=== PATIENT | female | born 1945 | race American Indian/Alaskan Native ===

== ENCOUNTER 2016-11-24 07:01 | Day surgery (SDC) | payer BC, MEDICARE, OTHER ==
[~2016-11-24 07:01] MED LIST: Dextrose 5%-0.45% NaCl 1,000 ML IV SCH; Midazolam 1 MG/ML 2 ML SDV ONE; Sodium Chloride 0.9% 10 ML Syringe FLUSH PRN; fentaNYL 100 MCG/2 ML SDV ONE
[2016-11-24] MEDS ORDERED: fentaNYL 100 MCG/2 ML SDV IV ONE ×3 (07:29→12:11)
[2016-11-24] MEDS ORDERED: Midazolam 1 MG/ML 2 ML SDV IV ONE ×7 (07:30→12:11)
--- NOTE | 2016-11-24 08:57 | OR ---
DATE: 11/24/2016 PROCEDURE: Total colonoscopy, NBI, and piecemeal snare polypectomy. INSTRUMENT USED: CF-H180AL Olympus video colonoscope. PREMEDICATIONS: Fentanyl 100 mcg intravenous, Versed 4 mg intravenous. Nasal O2 cannula. The procedure was done under pulse oximetry, BP recording, and director of cardiac rehabilitation. INDICATION: The patient with Hemoccult positive stools. Colonoscopic examination is done for detection of any polypoid lesions and removal, endoscopic hemostasis therapy if needed. DESCRIPTION OF PROCEDURE: Initial rectal exam was unremarkable. Rigid anoscopy was normal. The colonoscope was passed with ease. Numerous scattered diverticula were noted in the distal left colon along with deformity. The scope was passed with ease up to the ileocecal area, photographs were taken of the normal-appearing cecum, identified by landmarks of appendiceal orifice and double-bulged ileocecal folds. No bleeding was noted from any of the visualized areas at the commencement of the examination. No stricture. No vascular ectasia. No large isolated ulcerations seen. No evidence of diffuse inflammatory bowel disease in the form of friability, contact bleeding, or ulcerations. In the distal ascending colon, 1 cm sized superficial sessile polyp was noted, NBI views were obtained, photographs were taken, piecemeal snare polypectomy was done, the tissues were retrieved and sent for histopathology. Probing the proximal sides of folds and flexures, using adequate distention and clearing up the stool material, withdrawal of the scope was made. No bleeding was noted from any of the visualized areas at the completion of examination. IMPRESSION: 1. Diverticulosis. 2. Ascending colon polyp. The patient tolerated the procedure well. [facility] /[id number]
[2016-11-24 09:25] VITALS: BP 110/72
--- NOTE | 2016-11-24 10:51 | LETTER ---
11/24/2016 KELVIN Hubbard [facility] [address] [place] [address] RE: MOREKATHY Dominguez SATNAM : 1945 Dear Ms. Agudelo: Ms. Kathy Huizar had colonoscopic examination done this morning and she tolerated the procedure well. I herewith send a copy of the endoscopy note and photographs for your review. Thank you. Sincerely, [facility] /[id number]
== END 2016-11-27 10:19 | disposition home or self-care (01) ==
LOC: DL.ENDO 07:01
PROVIDERS: ATTEND Internal Medicine Gastroenterology
DX: D12.2 Benign neoplasm of ascending colon (principal); K57.30 Diverticulosis of large intestine without perforation or abscess without bleeding; K21.9 Gastro-esophageal reflux disease without esophagitis; E03.9 Hypothyroidism, unspecified; E66.09 Other obesity due to excess calories; Z88.6 Allergy status to analgesic agent; E78.00 Pure hypercholesterolemia, unspecified; E55.9 Vitamin D deficiency, unspecified; Z79.899 Other long term (current) drug therapy
CPT/HCPCS: 45385; J2250; J3010; J7042

== ENCOUNTER 2017-11-19 06:26 | Day surgery (SDC) | payer BC, MEDICARE, OTHER ==
[~2017-11-19 06:26] MED LIST changes: -Midazolam 1 MG/ML 2 ML SDV ONE; -fentaNYL 100 MCG/2 ML SDV ONE
[2017-11-19] MEDS ORDERED: Midazolam 1 MG/ML 2 ML SDV IV ONE ×6 (06:27→07:24)
[2017-11-19] MEDS ORDERED: fentaNYL 100 MCG/2 ML SDV IV ONE ×4 (06:27→07:26)
[2017-11-19] MEDS ORDERED: Dextrose 5%-0.45% NaCl 1,000 ML IV SCH (06:30)
[2017-11-19] MEDS ORDERED: Midazolam 1 MG/ML 2 ML SDV ONE (07:00)
[2017-11-19] MEDS ORDERED: fentaNYL 100 MCG/2 ML SDV ONE (07:01)
--- NOTE | 2017-11-19 08:18 | OR ---
DATE: 11/19/2017 PROCEDURE: Total colonoscopy. INSTRUMENT USED: PCF-H180 AL Olympus video colonoscope. PREMEDICATIONS: Fentanyl 150 mcg intravenous, Versed 4 mg intravenous. O2 administration. INDICATION: The patient with previous removal of sessile ascending colon polyp. Followup colonoscopic examination is done for detection of any residual polyp tissue and removal, endoscopic hemostasis therapy if needed. DESCRIPTION OF PROCEDURE: Initial rectal exam was unremarkable. Rigid anoscopy was normal. The colonoscope was passed with ease. Numerous scattered diverticula were noted in the distal left colon along with deformity. The scope was passed with relative ease up to the ileocecal area. Photographs were taken of the normal- appearing cecum, identified by landmarks of appendiceal orifice and double- bulged ileocecal folds. No bleeding was noted from any of the visualized areas at the commencement of the exam. There was some amount of fecal material that had to be aspirated clear. No stricture. No vascular ectasia. No large isolated ulcerations seen. No evidence of diffuse inflammatory bowel disease in the form of friability, contact bleeding, or ulcerations. No polyp or tumor mass identified. Probing the proximal sides of folds and flexures, using adequate distention and clearing up the stool material, withdrawal of the scope was made. [id number] time over 6 minutes. No bleeding was noted from any of the visualized areas at the completion of examination. IMPRESSION: Diverticulosis. The patient tolerated the procedure well. [facility] /[id number]
--- NOTE | 2017-11-19 08:59 | LETTER ---
11/19/2017 Guerita Agudelo, RODRIGUEZ [facility] [address] [place] [address] RE: KATHY CAM : 1945 Dear Ms. Agudelo: Ms. Kathy Dennis had colonoscopic examination done this morning and she tolerated the procedure well. I herewith send a copy of the endoscopy note and photographs for your review. Thank you. Sincerely, [facility] /[id number]
[2017-11-19 12:00] VITALS: BP 106/60
== END 2017-11-19 09:40 | disposition home or self-care (01) ==
LOC: DL.ENDO 06:26
PROVIDERS: ATTEND Internal Medicine Gastroenterology
DX: Z09 Encounter for follow-up examination after completed treatment for conditions other than malignant neoplasm (principal); K57.30 Diverticulosis of large intestine without perforation or abscess without bleeding; E66.09 Other obesity due to excess calories; K21.9 Gastro-esophageal reflux disease without esophagitis; E03.9 Hypothyroidism, unspecified; Z86.010 Personal history of colon polyps
CPT/HCPCS: 45378; J2250; J3010; J7042

== ENCOUNTER 2020-07-11 17:23 | Emergency (ER) | payer BC, MEDICARE ==
[2020-07-11 17:44] VITALS: BP 141/73; PULSE 87
[2020-07-11] MEDS ORDERED: Dexamethasone 4 MG/ML SDV IM ONE (17:57)
[2020-07-11] MEDS ORDERED: Orphenadrine 60 MG/2 ML Inj IM ONE (17:57)
--- NOTE | 2020-07-11 19:18 | EDM.PDOC ---
Scribed by Heather Maxwell 07/11/201917 for Ruth Holloway NP <Ruth Holloway - Last Filed: 07/11/20 19:18> ED HPI GENERAL MEDICAL PROBLEM - General Chief Complaint: Neck Problem Stated Complaint: PAIN ON LEFT SIDE Time Seen by Provider: 07/11/20 17:35 Source of Information: Reports: Patient, RN, RN Notes Reviewed History Limitations: Reports: No Limitations - History of Present Illness INITIAL COMMENTS - FREE TEXT/NARRATIVE: Patient is a 74-year-old female who presents to ER with complaint of left sided neck pain, with radiation down the left arm. This began slowly on Sunday. ASA has been helping--but progressively getting worse. Rates pain 02/06. States she has brain aneurysms and is being followed for that. States she has been going to [facility] for her neck. Onset: Gradual Duration: Getting Worse Location: Reports: Lower Extremity, Left Quality: Reports: Ache Severity: Moderate Improves with: Reports: None Worsens with: Reports: None Associated Symptoms: Reports: No Other Symptoms Left Arm Pain Score (Numeric/FACES): 10 - Related Data Allergies Allergy/AdvReac Type Severity Reaction Status Date / Time enteric coated aspirin AdvReac Nausea Uncoded 07/11/20 17:38 Home Meds: Home Meds Ibuprofen 200 mg PO ASDIRECTED PRN 01/24/15 [History] Levothyroxine [Synthroid] 75 mcg PO DAILY 01/24/15 [History] Simvastatin [Zocor] 40 mg PO BEDTIME 02/19/15 [History] Acetaminophen 650 mg PO ASDIRECTED PRN 11/08/16 [History] Cholecalciferol (Vitamin D3) [Vitamin D3] 1,000 units PO DAILY 11/08/16 [History] Famotidine 20 mg PO DAILY 11/08/16 [History] Dextromethorphan HBr [Delsym 30 MG/5 ML Susp] 45 mg PO ASDIRECTED PRN 11/19/17 [History] Past Medical History HEENT History: Reports: Cataract, Impaired Vision, Other (See Below) Other HEENT History: WEARS CORRECTIVE LENS. 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 Respiratory History: Reports: None Gastrointestinal History: Reports: Colon Polyp, GERD, Other (See Below) Other Gastrointestinal History: surgery for acid reflux Genitourinary History: Reports: None ONLINE SERVICES MANAGER History: Reports: Musculoskeletal History: Reports: Arthritis, Back Pain, Chronic Neurological History: Reports: Cerebral Aneurysms Psychiatric History: Reports: Anxiety, Depression Endocrine/Metabolic History: Reports: Hypothyroidism, Obesity/BMI 30+, Vitamin D Deficiency Hematologic History: Reports: Anemia Immunologic History: Reports: None Oncologic (Cancer) History: Reports: None Dermatologic History: Reports: None - Infectious Disease History Infectious Disease History: Reports: Chicken Pox, Measles - Past Surgical History Head Surgeries/Procedures: Reports: Other (See Below) HEENT Surgical History: Reports: Eye Surgery, Other (See Below) Other HEENT Surgeries/Procedures: LEFT BLEPHTHROPLASTY Cardiovascular Surgical History: Reports: Aneurysm Respiratory Surgical History: Reports: None GI Surgical History: Reports: Colonoscopy, EGD, Cruz Fundoplication, Polypectomy Female Surgical History: Reports: D&C, Tubal Ligation Endocrine Surgical History: Reports: None Neurological Surgical History: Reports: Other (See Below) Other Neurological Surgeries/Procedures: CEREBRAL COIL 04/2016 Musculoskeletal Surgical History: Reports: None Oncologic Surgical History: Reports: None Dermatological Surgical History: Reports: None Social & Family History - Family History Family Medical History: No Pertinent Family History - Caffeine Use Caffeine Use: Reports: Coffee Other Caffeine Use: AVERAGE OF 2.5 CUPS DAILY OF COFFEE ED ROS GENERAL - Review of Systems Review Of Systems: Comprehensive ROS is negative, except as noted in HPI. ED EXAM, UPPER BACK/NECK PAIN - Physical Exam Exam: See Below Exam Limited By: No Limitations General Appearance: Moderate Distress Eye Exam: Bilateral Eye: EOMI, Normal Inspection, PERRL Ears Exam: Normal External Exam, Normal Canal, Hearing Grossly Normal, Normal TMs Nose Exam: Normal Inspection, Normal Mucousa, No Blood Throat/Mouth Exam: Normal Inspection, Normal Lips, Normal Teeth, Normal Gums, Normal Oropharynx, Normal Voice, No Airway Compromise Head Exam: Atraumatic, Normocephalic Neck Exam: Other (Tender lateral and midline. Decreased range of motion. ) (Female) Exam: Deferred Rectal (Female) Exam: Deferred Back Exam: Decreased Range of Motion Extremities: Normal Inspection, Normal Range of Motion, Non-Tender, No Pedal Edema, Normal Capillary Refill Neurologic: Alert, Oriented x 3 Psychiatric: Anxious Skin Exam: Normal Color, Warm/Dry Lymphatic: No Adenopathy Departure - Departure Disposition: Home, Self-Care 01 Clinical Impression: Cervical radiculopathy - Discharge Information Instructions: Cervical Radiculopathy, [id number] Forms: ED Department Discharge Care Plan Goals: The patient was advised of the examination and x-ray results during the visit. The patient was given a dose of Dexamethasone and a muscle relaxer while in the ED. The patient was discharged with a script for Dexamethasone (2 mg) #10 to take by mouth 2 times per day for 5 days. The patient was encouraged to follow- up with her primary care facility as soon as possible for continued evaluation (MRI) and treatment (physical therapy). If the patient has any additional symptoms or concerns, the patient should either return to the emergency department or visit her primary care facility. <Amador Cameron M - Last Filed: 07/11/20 19:38> Course - Vital Signs Last Recorded V/S: Last Vital Signs Temp 36.4 C 07/11/20 17:43 Pulse 87 07/11/20 17:43 Resp 18 07/11/20 17:43 BP 141/73 H 07/11/20 17:43 Pulse Ox 98 07/11/20 17:43 - Orders/Labs/Meds Meds: Medications Discontinued Medications Generic Name Dose Route Start Last Admin Trade Name Venus PRJignesh Reason Stop Dose Admin Dexamethasone 8 mg 07/11/20 17:57 07/11/20 18:04 Dexamethasone 4 Mg/Ml Sdv IM 07/11/20 17:58 8 mg ONETIME ONE Administration Orphenadrine Citrate 60 mg 07/11/20 17:57 07/11/20 18:04 Orphenadrine 60 Mg/2 Ml Inj IM 07/11/20 17:58 60 mg ONETIME ONE Administration Departure - Departure Time of Disposition: 19:34 Condition: Fair - Discharge Information *PRESCRIPTION DRUG MONITORING PROGRAM REVIEWED*: Not Applicable *COPY OF PRESCRIPTION DRUG MONITORING REPORT IN PATIENT HELEN: Not Applicable Sepsis Event Note (ED) - Focused Exam Vital Signs: Vital Signs Temp Pulse Resp BP Pulse Ox 07/11/20 17:43 36.4 C 87 18 141/73 H 98 I have read and agree with the documentation that has been completed regarding this visit. By signing this record, I attest that the documentation was completed in my physical presence and is an accurate record of the encounter.
--- NOTE | 2020-07-11 19:19 | CR ---
PROCEDURE INFORMATION: Exam: XR Cervical Spine Exam date and time: 07/11/2020 6:23 PM Age: 74 years old Clinical indication: Other: No trauma; Additional info: Neck, left arm pain TECHNIQUE: Imaging protocol: XR of the cervical spine. Views: 4 or 5 views. COMPARISON: No relevant prior studies available. FINDINGS: Bones/joints: Normal alignment in neutral, flexion, and extension. Bilateral foraminal stenosis C5-C6 and unilateral foraminal stenosis at C6-C7. No fracture deformity. Diffuse osteopenia. No lytic or osteo sclerotic lesions. Disc osteophyte formation at C5-C6 and C6-C7. Soft tissues: Unremarkable. IMPRESSION: 1. No acute findings. 2. 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
== END 2020-07-11 19:52 | disposition home or self-care (01) ==
LOC: DL.ED 17:23
DX: M54.12 Radiculopathy, cervical region (principal); E78.00 Pure hypercholesterolemia, unspecified; K21.9 Gastro-esophageal reflux disease without esophagitis; E03.9 Hypothyroidism, unspecified; E66.9 Obesity, unspecified; Z79.899 Other long term (current) drug therapy
CPT/HCPCS: 72050; 96372; 99283; J1100; J2360

== ENCOUNTER 2022-06-28 07:32 | Day surgery (SDC) | payer OTHER, MEDICARE, BC ==
[~2022-06-28 07:32] MED LIST changes: +Acetaminophen 325 MG Tab PO PRN; +Acetaminophen/Codeine 300-30 MG Tab PO PRN; +Apraclonidine 0.5% Ophth Soln 5 ML Bot EYELF ONE; +Balanced Salt Solution Ophth Irrig 500 ML Bottle IOCULAR ONE; +Cataract Ophth Solution EYELF ONE; +Chondroitin Sulfate/Hyaluronate Sodium Ophth Inj 0.75 ML Syringe EYELF ONE; +Dexamethasone/Neomycin/Polymyxin B Ophth Oint 3.5 GM Tube EYELF ONE; -Dextrose 5%-0.45% NaCl 1,000 ML IV SCH; +Diclofenac Sodium 0.1% Ophth Soln 5 ML Bottle EYELF ONE; +Lidocaine 1% 30 ML SDV ONE; +Moxifloxacin 0.5% Ophth Soln 3 ML Bottle EYELF ONE; +Ondansetron 4 MG/2 ML SDV IVPUSH PRN; +Phenylephrine 10% Ophth Soln 5 ML Bot EYELF PRN; +Povidone-Iodine 5% Sterile Ophth Soln 30 ML Bottle EYELF ONE; +Proparacaine 0.5% Ophth Soln 15 ML Bottle EYELF ONE; +Timolol Maleate 0.5% Ophth Soln 5 ML Bottle EYELF ONE; +Tropicamide 1% Ophth Soln 15 ML Bottle EYELF ONE; +Vancomycin 500 MG SDV EYELF ONE
[2022-06-28] MEDS ORDERED: Midazolam 1 MG/ML 2 ML SDV IV ONE (07:33)
[2022-06-28] MEDS ORDERED: Dexamethasone 4 MG/ML SDV IV ONE (07:33)
[2022-06-28] MEDS ORDERED: Sodium Chloride 0.9% 10 ML Syringe IV ONE (07:33)
[2022-06-28 10:04] VITALS: BP 115/71; PULSE 63
== END 2022-06-28 10:25 | disposition home or self-care (01) ==
LOC: DL.SDS 07:32
PROVIDERS: ATTEND Ophthalmology
DX: H25.812 Combined forms of age-related cataract, left eye (principal); E03.9 Hypothyroidism, unspecified; K57.30 Diverticulosis of large intestine without perforation or abscess without bleeding; F41.9 Anxiety disorder, unspecified; I12.9 Hypertensive chronic kidney disease with stage 1 through stage 4 chronic kidney disease, or unspecified chronic kidney disease; N18.30 Chronic kidney disease, stage 3 unspecified; E11.22 Type 2 diabetes mellitus with diabetic chronic kidney disease; E11.40 Type 2 diabetes mellitus with diabetic neuropathy, unspecified; M81.0 Age-related osteoporosis without current pathological fracture; E55.9 Vitamin D deficiency, unspecified; K21.9 Gastro-esophageal reflux disease without esophagitis; E78.5 Hyperlipidemia, unspecified; F43.22 Adjustment disorder with anxiety; Z87.891 Personal history of nicotine dependence; Z79.899 Other long term (current) drug therapy; Z79.890 Hormone replacement therapy; Z79.84 Long term (current) use of oral hypoglycemic drugs; Z88.6 Allergy status to analgesic agent
CPT/HCPCS: 00142; A9270-GY; J1100; J2250; J3370; J3490; V2632

== ENCOUNTER 2022-07-12 07:04 | Day surgery (SDC) | payer BC, MEDICARE, OTHER ==
[~2022-07-12 07:04] MED LIST changes: -Acetaminophen 325 MG Tab PO PRN; -Apraclonidine 0.5% Ophth Soln 5 ML Bot EYELF ONE; -Balanced Salt Solution Ophth Irrig 500 ML Bottle IOCULAR ONE; -Cataract Ophth Solution EYELF ONE; +Cataract Ophth Solution EYERT ONE; -Chondroitin Sulfate/Hyaluronate Sodium Ophth Inj 0.75 ML Syringe EYELF ONE; -Dexamethasone/Neomycin/Polymyxin B Ophth Oint 3.5 GM Tube EYELF ONE; -Diclofenac Sodium 0.1% Ophth Soln 5 ML Bottle EYELF ONE; -Lidocaine 1% 30 ML SDV ONE; -Moxifloxacin 0.5% Ophth Soln 3 ML Bottle EYELF ONE; +Moxifloxacin 0.5% Ophth Soln 3 ML Bottle EYERT ONE; -Phenylephrine 10% Ophth Soln 5 ML Bot EYELF PRN; +Phenylephrine 10% Ophth Soln 5 ML Bot EYERT PRN; -Povidone-Iodine 5% Sterile Ophth Soln 30 ML Bottle EYELF ONE; +Povidone-Iodine 5% Sterile Ophth Soln 30 ML Bottle EYERT ONE; -Proparacaine 0.5% Ophth Soln 15 ML Bottle EYELF ONE; +Proparacaine 0.5% Ophth Soln 15 ML Bottle EYERT ONE; -Timolol Maleate 0.5% Ophth Soln 5 ML Bottle EYELF ONE; +Timolol Maleate 0.5% Ophth Soln 5 ML Bottle EYERT ONE; -Tropicamide 1% Ophth Soln 15 ML Bottle EYELF ONE; +Tropicamide 1% Ophth Soln 15 ML Bottle EYERT ONE; -Vancomycin 500 MG SDV EYELF ONE
[2022-07-12] MEDS ORDERED: Midazolam 1 MG/ML 2 ML SDV IVPUSH ONE (07:05)
[2022-07-12] MEDS ORDERED: Sodium Chloride 0.9% 10 ML Syringe IVPUSH ONE (07:05)
[2022-07-12] MEDS ORDERED: Dexamethasone 4 MG/ML SDV IVPUSH ONE (07:05)
[2022-07-12] MEDS ORDERED: Proparacaine 0.5% Ophth Soln 15 ML Bottle EYERT ONE (08:11)
[2022-07-12] MEDS ORDERED: Povidone-Iodine 5% Sterile Ophth Soln 30 ML Bottle EYERT ONE (08:13)
[2022-07-12] MEDS ORDERED: Chondroitin Sulfate/Hyaluronate Sodium Ophth Inj 0.75 ML Syringe EYERT ONE (08:22)
[2022-07-12] MEDS ORDERED: Dexamethasone 4 MG/ML SDV IOCULAR ONE (08:22)
[2022-07-12] MEDS ORDERED: Balanced Salt Solution Ophth Irrig 500 ML Bottle IOCULAR ONE (08:22)
[2022-07-12] MEDS ORDERED: Vancomycin 500 MG SDV EYERT ONE (08:22)
[2022-07-12] MEDS ORDERED: Lidocaine 1% 30 ML SDV ONE (08:22)
[2022-07-12] MEDS ORDERED: Diclofenac Sodium 0.1% Ophth Soln 5 ML Bottle EYERT ONE (08:25)
[2022-07-12] MEDS ORDERED: Apraclonidine 0.5% Ophth Soln 5 ML Bot EYERT ONE (08:26)
[2022-07-12] MEDS ORDERED: Dexamethasone/Neomycin/Polymyxin B Ophth Oint 3.5 GM Tube EYERT ONE (08:26)
[2022-07-12] MEDS: Acetaminophen 325 MG Tab PO PRN ×2 (09:17→09:20)
[2022-07-12 12:28] VITALS: BP 116/65; PULSE 56
== END 2022-07-12 09:43 | disposition home or self-care (01) ==
LOC: DL.SDS 07:04
PROVIDERS: ATTEND Ophthalmology
DX: H25.811 Combined forms of age-related cataract, right eye (principal); E03.9 Hypothyroidism, unspecified; E78.5 Hyperlipidemia, unspecified; E11.22 Type 2 diabetes mellitus with diabetic chronic kidney disease; I12.9 Hypertensive chronic kidney disease with stage 1 through stage 4 chronic kidney disease, or unspecified chronic kidney disease; N18.30 Chronic kidney disease, stage 3 unspecified; K21.9 Gastro-esophageal reflux disease without esophagitis; M81.0 Age-related osteoporosis without current pathological fracture; Z79.890 Hormone replacement therapy; Z79.899 Other long term (current) drug therapy; Z79.84 Long term (current) use of oral hypoglycemic drugs
CPT/HCPCS: 00142; A9270-GY; J1100; J2250; J3370; J3490; V2632

== ENCOUNTER 2023-11-26 05:21 | Day surgery (SDC) | payer BC, MEDICARE, OTHER ==
[2023-11-26] MEDS ORDERED: fentaNYL 100 MCG/2 ML SDV IV ONE (05:22)
[2023-11-26] MEDS ORDERED: Midazolam 1 MG/ML 2 ML SDV IV ONE (05:22)
[2023-11-26] MEDS: Dextrose 5%-0.45% NaCl 1,000 ML IV SCH (06:06)
[2023-11-26] MEDS ORDERED: Midazolam 1 MG/ML 2 ML SDV ONE (06:17)
[2023-11-26] MEDS ORDERED: fentaNYL 100 MCG/2 ML SDV ONE (06:17)
[2023-11-26] MEDS: fentaNYL 100 MCG/2 ML SDV IV ONE ×2 (06:32→06:33)
[2023-11-26] MEDS: Midazolam 1 MG/ML 2 ML SDV IV ONE ×6 (06:33→06:48)
[2023-11-26 08:07] VITALS: BP 109/76; PULSE 65
== END 2023-11-26 08:20 | disposition home or self-care (01) ==
LOC: DL.ENDO 05:21
PROVIDERS: ATTEND Internal Medicine Gastroenterology
DX: Z12.11 Encounter for screening for malignant neoplasm of colon (principal); K57.30 Diverticulosis of large intestine without perforation or abscess without bleeding; Z85.038 Personal history of other malignant neoplasm of large intestine
CPT/HCPCS: 45378; J2250; J3010; J7799

== ENCOUNTER 2024-11-13 22:12 | Emergency (ER) | payer BC, MEDICARE, OTHER ==
[2024-11-13 22:41] VITALS: BP 109/75; PULSE 56
== END 2024-11-13 22:43 | disposition home or self-care (01) ==
LOC: DL.ED 22:12
DX: S00.06XA Insect bite (nonvenomous) of scalp, initial encounter (principal); I10 Essential (primary) hypertension; E78.00 Pure hypercholesterolemia, unspecified; K21.9 Gastro-esophageal reflux disease without esophagitis; E03.9 Hypothyroidism, unspecified; W57.XXXA Bitten or stung by nonvenomous insect and other nonvenomous arthropods, initial encounter; Y93.89 Activity, other specified
CPT/HCPCS: 99281